=== PATIENT | male | born 1985 | race Caucasian/White ===

== ENCOUNTER 2020-02-08 16:11 | Emergency (ER) | payer MEDICAID ==
[~2020-02-08] VITALS: Ht 167.6 cm; Wt 66.7 kg
[2020-02-08 16:20] VITALS: BP 123/72
--- NOTE | 2020-02-08 16:22 | NUR ---
AT BEDSIDE FOR EVAL.
--- NOTE | 2020-02-08 16:42 | NUR ---
Patient given written and verbal discharge instructions. Patient verbalizes understanding of instructions. Patient is ambulatory with steady gait. Refuses offer of long term placement. Patient given list of available shelters in surrounding area.
== END 2020-02-08 16:43 | disposition home or self-care (01) ==
LOC: ER 16:13
DX: G40.909 Epilepsy, unspecified, not intractable, without status epilepticus (principal); Z60.2 Problems related to living alone; Z86.73 Personal history of transient ischemic attack (TIA), and cerebral infarction without residual deficits

== ENCOUNTER 2020-06-26 18:34 | Emergency (ER) | payer MEDICAID, OTHER ==
[~2020-06-26] VITALS: Ht 170.2 cm; Wt 66.7 kg
--- NOTE | 2020-06-26 18:45 | NUR ---
IV established. blood drawn and sent to lab
--- NOTE | 2020-06-26 18:48 | NUR ---
TAB 102 from [facility] with witnessed seizure. BS 142. pt states he bit his tongue. no injury noted. c/o mild headache. pt alert and able to follow commands. seizure precaution provided. PA at bedside for gerardo
[2020-06-26 18:57] LABS: BASOPHILS % (AUTO) 0.9 % (0.0-2.0); EOSINOPHILS % (AUTO) 7.4 % (0.0-6.0); HEMATOCRIT 35 % (39-51); HEMOGLOBIN 11.4 g/dL (13.5-17.5); LYMPHOCYTES % (AUTO) 24.7 % (20.0-44.0); MEAN CORPUSCULAR HGB CONC 32 g/dl (31.0-36.0); MEAN CORPUSCULAR VOLUME 79 fL (80-96); MONOCYTES # (AUTO) 0.5 /CMM (0.1-1.30); MONOCYTES % (AUTO) 11.8 % (2.0-12.0); NEUTROPHILS # (AUTO) 2.1 /CMM (1.8-8.9); NEUTROPHILS % (AUTO) 55.2 % (43.0-81.0); PLATELET COUNT (AUTO) 217 /CMM (150-450); RED BLOOD CELL COUNT(AUTO) 4.46 MIL/uL (4.5-6.0); WHITE BLOOD COUNT (AUTO) 3.9 K/uL (4.3-11.0)
[2020-06-26] MEDS ORDERED: IV NS 0.9% 1,000 ML BAG IV ONE (19:00)
[2020-06-26] MEDS ORDERED: LEVETIRACETAM (500MG) 1,000 MG in IV NS 0.9% 100 ML IV ONE (19:00)
[2020-06-26 19:15] LABS: ALANINE AMINOTRANSFERASE 18 U/L (12-78); ALBUMIN 2.9 g/dL (3.4-5.0); ALKALINE PHOSPHATASE 132 U/L (46-116); ASPARTATE AMINOTRANSFERASE 20 U/L (15-37); BILIRUBIN,TOTAL 0.1 mg/dL (0.2-1.0); CALCIUM, SERUM 8.4 mg/dL (8.5-10.1); CARBON DIOXIDE 29 mmol/L (21-32); CHLORIDE 101 mmol/L (98-107); CREATININE 0.7 mg/dL (0.6-1.3); GLUCOSE 112 mg/dL (74-106); SODIUM SERUM 136 mmol/L (136-145); TOTAL PROTEIN, SERUM 7.8 g/dL (6.4-8.2); UREA NITROGEN, BLOOD 26 mg/dL (7-18)
--- NOTE | 2020-06-26 19:36 | NUR ---
PT AAOX3, VSS, RESPIRATIONS EVEN AND UNLABORED ON RA W/ NAD NOTED. PT CONNECTED TO THE [facility] AND POX. WILL CONTINUE TO MONITOR FOR SAFETY. CALL LIGHT WITHIN REACH
--- NOTE | 2020-06-26 19:45 | NUR ---
SPOKE W/ JOURDAN FROM COUNTS INCLUDE 234 BEDS AT THE [facility], THEY WILL CALL BACK REGARDING PT'S DC INFO.
[2020-06-26] MEDS ORDERED: IBUPROFEN 600 MG TABLET ONE (19:46)
[2020-06-26 19:49] LABS: VALPROIC ACID < 3 ug/mL (50-100)
[2020-06-26] MEDS ORDERED: IBUPROFEN 600 MG TABLET PO ONE (20:00)
--- NOTE | 2020-06-26 20:00 | NUR ---
PT REFUSED TO BE PLACED IN A COMPLIANCE REPRESENTATIVE AND POX. EXPLAINED RISKS AND BENEFITS.
--- NOTE | 2020-06-26 21:29 | NUR ---
CALLED [facility] FRANKEL INTAKE, STATES WILL CALL BACK WITH UPDATE ON [facility] COLEMAN ADMIT
--- NOTE | 2020-06-26 22:40 | NUR ---
PT RESTING COMFORTABLY IN BED. NO ACUTE DISTRESS NOTED. WILL CONTINUE TO MONITOR
--- NOTE | 2020-06-26 23:12 | NUR ---
ACCEPTING MD BRICEÑO PT WILL GO TO UNIT 1 PHONE# FOR REPORT
--- NOTE | 2020-06-26 23:17 | NUR ---
[facility] ETA [phone]
--- NOTE | 2020-06-26 23:52 | NUR ---
REPORT GIVEN TO RIKKI DORAN FOR [facility]
--- NOTE | 2020-06-27 00:52 | NUR ---
REPORT GIVEN TO MIREYA HARVEY PT STABLE FOR TRANSFER
--- NOTE | 2020-06-27 00:53 | NUR ---
Patient discharged back to facility in stable condition. Written and verbal after care instructions given. Patient verbalizes understanding of instruction.
[2020-06-27 00:55] VITALS: BP 109/63
== END 2020-06-27 00:56 ==
LOC: ER 18:37
DX: G40.909 Epilepsy, unspecified, not intractable, without status epilepticus (principal); R51.9 Headache, unspecified; I25.2 Old myocardial infarction; F43.10 Post-traumatic stress disorder, unspecified; F32.9 Major depressive disorder, single episode, unspecified; Z86.73 Personal history of transient ischemic attack (TIA), and cerebral infarction without residual deficits; Z98.890 Other specified postprocedural states; Z88.6 Allergy status to analgesic agent; Z88.8 Allergy status to other drugs, medicaments and biological substances; Z60.2 Problems related to living alone
CPT/HCPCS: 36415; 70450; 80048; 80076; 80164; 80177; 84484; 85025; 93005; 96365; 99285; J1953; J7030 ×2

== ENCOUNTER 2020-06-27 12:07 | Emergency (ER) | payer OTHER ==
[~2020-06-27] VITALS: Ht 172.7 cm; Wt 66.2 kg
[2020-06-27] MEDS ORDERED: LEVETIRACETAM (250 MG) 250 MG TABLET PO ONE ×2 (12:25→12:30)
--- NOTE | 2020-06-27 12:28 | NUR ---
PATIENT A/OX4, SEEN AND EVALUATED BY DR. ARNOLD. PATIENT REFUSED TO HAVE IV INSERTION. PATIENT DENIES SI/HI AT THIS TIME. REQUESTING FOR FOOD.
[2020-06-27] MEDS ORDERED: LEVETIRACETAM (500MG) 500 MG in IV NS 0.9% 100 ML IV ONE (12:30)
[2020-06-27] MEDS ORDERED: IBUPROFEN 600 MG TABLET ONE (12:38)
--- NOTE | 2020-06-27 12:40 | NUR ---
PATIENT A/OX4, BREATHING EVEN AND UNLABORED, AMBULATORY WITH STEADY GAIT. NO DISTRESS NOTED. DR. ARNOLD AWARE. GIVEN FOOD AND TOLERATED WELL.
[2020-06-27 12:51] VITALS: BP 125/91
--- NOTE | 2020-06-27 12:54 | NUR ---
Patient given written and verbal discharge instructions. Patient verbalizes understanding of instructions. Patient is ambulatory with steady gait. Refuses offer of [facility] placement. Patient given list of available shelters in surrounding area.
[2020-06-27] MEDS ORDERED: IBUPROFEN 600 MG TABLET PO ONE (13:00)
== END 2020-06-27 12:54 | disposition home or self-care (01) ==
LOC: ER 12:14
DX: G40.909 Epilepsy, unspecified, not intractable, without status epilepticus (principal); I25.2 Old myocardial infarction; F32.9 Major depressive disorder, single episode, unspecified; F43.10 Post-traumatic stress disorder, unspecified; Z98.890 Other specified postprocedural states; Z86.73 Personal history of transient ischemic attack (TIA), and cerebral infarction without residual deficits; Z88.8 Allergy status to other drugs, medicaments and biological substances; Z88.6 Allergy status to analgesic agent; Z60.2 Problems related to living alone
CPT/HCPCS: J1953; J7030

== ENCOUNTER 2021-05-27 19:15 | Emergency (ER) | payer MEDICAID, OTHER ==
[~2021-05-27] VITALS: Ht 172.7 cm; Wt 61.2 kg
--- NOTE | 2021-05-27 19:34 | NUR ---
Patient does not wish to proceed with medical care recommended by Dr. Jensen. Patient given information related to possible complications, up to and including , which could occur as a result of leaving the hospital at this time. Patient verbalizes understanding of risks involved due to leaving against medical advice. Patient has signed AMA form.
[2021-05-27 19:35] VITALS: BP 133/80
== END 2021-05-27 20:20 | disposition home or self-care (01) ==
LOC: ER 20:19
DX: R25.1 Tremor, unspecified (principal); R56.9 Unspecified convulsions; I25.2 Old myocardial infarction; F43.10 Post-traumatic stress disorder, unspecified; Z60.2 Problems related to living alone; Z86.73 Personal history of transient ischemic attack (TIA), and cerebral infarction without residual deficits; Z95.5 Presence of coronary angioplasty implant and graft; Z86.711 Personal history of pulmonary embolism; Z85.831 Personal history of malignant neoplasm of soft tissue; Z88.4 Allergy status to anesthetic agent; Z88.8 Allergy status to other drugs, medicaments and biological substances; Z88.5 Allergy status to narcotic agent; Z88.6 Allergy status to analgesic agent; Z91.018 Allergy to other foods

== ENCOUNTER 2022-02-06 07:38 | Emergency (ER) | payer MEDICAID, OTHER ==
[~2022-02-06] VITALS: Ht 172.7 cm; Wt 61.2 kg
[2022-02-06] MEDS ORDERED: KETOROLAC TROMETHAMINE INJ 30 MG/ML VIAL ONE (08:45)
[2022-02-06] MEDS ORDERED: ACETAMINOPHEN W/ CODEINE#3 1 EA TABLET ONE (08:45)
[2022-02-06] MEDS ORDERED: ACETAMINOPHEN W/ CODEINE#3 1 EA TABLET PO ONE (09:00)
[2022-02-06] MEDS ORDERED: KETOROLAC TROMETHAMINE INJ 60 MG/2 ML VIAL IM ONE (09:00)
[2022-02-06] MEDS ORDERED: ACET1TAB23 PO (09:35)
--- NOTE | 2022-02-06 10:01 | NUR ---
Patient discharged to home in stable condition. Written and verbal after care instructions given. Patient verbalizes understanding of instruction.
[2022-02-06 10:03] VITALS: BP 133/88
== END 2022-02-06 10:03 | disposition home or self-care (01) ==
LOC: ER 07:40
DX: S09.90XA Unspecified injury of head, initial encounter (principal); I25.2 Old myocardial infarction; Z86.69 Personal history of other diseases of the nervous system and sense organs; Z88.8 Allergy status to other drugs, medicaments and biological substances; Z79.1 Long term (current) use of non-steroidal anti-inflammatories (NSAID); Y04.2XXA Assault by strike against or bumped into by another person, initial encounter; Y93.89 Activity, other specified; Y92.89 Other specified places as the place of occurrence of the external cause; Y99.8 Other external cause status
CPT/HCPCS: 70450; 70486; 96372; 99284; J1885

== ENCOUNTER 2022-04-26 06:56 | Emergency (ER) | payer MEDICAID ==
[~2022-04-26] VITALS: Ht 175.3 cm; Wt 64.0 kg
[~2022-04-26 06:56] MED LIST: ACET1TAB23 PO
--- NOTE | 2022-04-26 06:58 | NUR ---
BIBRA39 FORM SOCALVN FOR LOSS OF SENSATION TO RIGHT SIDE OF FACE/RIGHT ARM LWK 0625. +SLURRED SPEECH. PATIENT ALERT AND ORIENTED X2. BROUGHT IN BY STRETCHER IN BED 09 ON MONITOR AND POX, SEEN BY MD AT TRIAGE.
--- NOTE | 2022-04-26 06:59 | NUR ---
CODE STROKE ACTIVATED
[2022-04-26] MEDS ORDERED: IV NS 0.9% 1,000 ML BAG IV ONE (07:00)
--- NOTE | 2022-04-26 07:01 | NUR ---
PT TAKEN TO CT VIA [facility] ACLS PROTOCOL
--- NOTE | 2022-04-26 07:02 | NUR ---
TELEMED REQUEST ACTIVATED
--- NOTE | 2022-04-26 07:04 | NUR ---
[facility] SCORE 3: SLURRED SPEECH, R ARM WEAKNESS, AND FACIAL DROOP NOTED
--- NOTE | 2022-04-26 07:11 | NUR ---
[place] [address]; DR MOISES ISSA AWARE
--- NOTE | 2022-04-26 07:11 | NUR ---
BACK FROM CT
--- NOTE | 2022-04-26 07:14 | NUR ---
EMT AT PT'S BEDSIDE FOR EKG
--- NOTE | 2022-04-26 07:14 | NUR ---
Jerson frausto in [facility] - 04/26/22 at 0714 by ZOHREH BELEN SANTANA @[email or web address]
--- NOTE | 2022-04-26 07:14 | NUR ---
RAC #20G S/L BLOOD COLLECTED AND SENT TO LAB
[2022-04-26] MEDS ORDERED: RIVA10TA PO (07:22)
[2022-04-26] MEDS ORDERED: LEVE100023 PO (07:22)
--- NOTE | 2022-04-26 07:23 | NUR ---
DR DE LEON ON THE PHONE WITH DR ROSADO, RADIOLOGIST
[2022-04-26 07:26] LABS: BASOPHILS % (AUTO) 1.3 % (0.0-2.0); EOSINOPHILS % (AUTO) 4.3 % (0.0-6.0); HEMATOCRIT 37 % (39-51); HEMOGLOBIN 11.9 g/dL (13.5-17.5); LYMPHOCYTES # (AUTO) 0.9 K/uL (0.8-4.8); LYMPHOCYTES % (AUTO) 28.6 % (20.0-44.0); MEAN CORPUSCULAR HGB CONC 33 g/dl (31.0-36.0); MEAN CORPUSCULAR VOLUME 81 fL (80-96); MONOCYTES # (AUTO) 0.5 K/uL (0.1-1.30); MONOCYTES % (AUTO) 14.8 % (2.0-12.0); NEUTROPHILS # (AUTO) 1.7 K/uL (1.8-8.9); PLATELET COUNT (AUTO) 229 K/uL (150-450); RED BLOOD CELL COUNT(AUTO) 4.53 MIL/uL (4.5-6.0); WHITE BLOOD COUNT (AUTO) 3.2 K/uL (4.3-11.0)
--- NOTE | 2022-04-26 07:32 | NUR ---
COVID TEST COLLECTED AND SENT
[2022-04-26 07:40] LABS: CALCIUM, SERUM 8.3 mg/dL (8.5-10.1); CARBON DIOXIDE 29 mmol/L (21-32); CHLORIDE 104 mmol/L (98-107); CREATININE 0.8 mg/dL (0.6-1.3); GLUCOSE 86 mg/dL (74-106); POTASSIUM 4.7 mmol/L (3.5-5.1); SODIUM SERUM 138 mmol/L (136-145); UREA NITROGEN, BLOOD 15 mg/dL (7-18)
--- NOTE | 2022-04-26 08:01 | NUR ---
PT STATED THAT HE WANTED TO LEAVE AGAINST MEDICAL ADVICE, DR DE LEON AWARE. PT WAS EXPLAINED THE RISKS OF LEAVING INCLUDING STROKE, DISABILTY, AND , PT VERBALIZED HE UNDERSTOOD. AMA FORM SIGNED BY PATIENT.
[2022-04-26 08:03] VITALS: BP 132/74
--- NOTE | 2022-04-26 08:04 | NUR ---
IV removed. Catheter intact and site benign. Pressure and 4x4 applied to site. No bleeding noted.
--- NOTE | 2022-04-26 08:04 | NUR ---
Patient discharged to home in stable condition. Written and verbal after care instructions given. Patient verbalizes understanding of instruction.
--- NOTE | 2022-04-28 17:27 | NUR ---
CALL FROM LAB REGARDING (+) BLOOD CULTURE:GM (+) CO[facility]I IN [facility], PHONE NUMBERS ON -FILE CALLED,1 NUMBER IS NOT A WORKING NUMBER AND THE OTHER NUMBER,REJECTED MY CALL
== END 2022-04-26 08:13 | disposition home or self-care (01) ==
LOC: ER 06:58
DX: G40.909 Epilepsy, unspecified, not intractable, without status epilepticus (principal); R53.1 Weakness; Z20.822 Contact with and (suspected) exposure to COVID-19; Z86.73 Personal history of transient ischemic attack (TIA), and cerebral infarction without residual deficits; I25.2 Old myocardial infarction; Z86.711 Personal history of pulmonary embolism; C46.9 Kaposi's sarcoma, unspecified; C18.9 Malignant neoplasm of colon, unspecified; C79.31 Secondary malignant neoplasm of brain; F43.10 Post-traumatic stress disorder, unspecified; Z85.72 Personal history of non-Hodgkin lymphomas; Z91.041 Radiographic dye allergy status; Z91.011 Allergy to milk products; Z88.5 Allergy status to narcotic agent; Z88.8 Allergy status to other drugs, medicaments and biological substances; Z91.018 Allergy to other foods; Z79.01 Long term (current) use of anticoagulants; Z79.899 Other long term (current) drug therapy
CPT/HCPCS: 99285; 96360; 70450; 71045; 87426; 93005; 85025; 80048; 87040 ×2; 83605; 36415; 84484; 85730; 82962; J7030; C9803

== ENCOUNTER 2024-02-23 18:22 | Emergency (ER) | payer MEDICAID ==
[~2024-02-23] VITALS: Ht 170.2 cm; Wt 63.5 kg
[~2024-02-23 18:22] MED LIST changes: -ACET1TAB23 PO; +LEVE100023 PO; +RIVA10TA PO
[2024-02-23 19:59] LABS: BASOPHILS % (AUTO) 1.3 % (0.0-2.0); EOSINOPHILS # (AUTO) 0.2 K/uL (0.0-0.7); EOSINOPHILS % (AUTO) 5.4 % (0.0-6.0); HEMATOCRIT 33 % (39-51); LYMPHOCYTES # (AUTO) 1.6 K/uL (0.8-4.8); LYMPHOCYTES % (AUTO) 44.7 % (20.0-44.0); MEAN CORPUSCULAR HEMOGLOBIN 27 PG (26.0-33.0); MEAN CORPUSCULAR HGB CONC 34 g/dl (31.0-36.0); MEAN CORPUSCULAR VOLUME 80 fL (80-96); MONOCYTES # (AUTO) 0.5 K/uL (0.1-1.30); MONOCYTES % (AUTO) 12.8 % (2.0-12.0); NEUTROPHILS # (AUTO) 1.3 K/uL (1.8-8.9); NEUTROPHILS % (AUTO) 35.8 % (43.0-81.0); PLATELET COUNT (AUTO) 352 K/uL (150-450); RED BLOOD CELL COUNT(AUTO) 4.12 MIL/uL (4.5-6.0); RED CELL DISTRIBUTION WIDTH 15.7 % (11.5-15.0); WHITE BLOOD COUNT (AUTO) 3.7 K/uL (4.3-11.0)
[2024-02-23 20:23] LABS: CALCIUM, SERUM 8.6 mg/dL (8.5-10.1); CREATININE 0.9 mg/dL (0.6-1.3); POTASSIUM 4.3 mmol/L (3.5-5.1)
[2024-02-23 20:26] LABS: ALANINE AMINOTRANSFERASE 40 U/L (12-78); ALBUMIN 2.5 g/dL (3.4-5.0); ALCOHOL, BLOOD < 3 mg/dL (0-10); ALKALINE PHOSPHATASE 165 U/L (46-116); ASPARTATE AMINOTRANSFERASE 18 U/L (15-37); BILIRUBIN,DIRECT 0.1 mg/dL (0.0-0.2); BILIRUBIN,TOTAL 0.2 mg/dL (0.2-1.0)
[2024-02-23 20:32] LABS: SALICYLATE 1.9 mg/dL (2.8-20.0)
[2024-02-23 20:33] LABS: ACETAMINOPHEN 0 ug/ml (10-30)
[2024-02-23 20:41] LABS: AMPHETAMINE, URINE POSITIVE (NEGATIVE); BARBITURATE, URINE NEGATIVE (NEGATIVE); BENZODIAZEPINE, URINE NEGATIVE (NEGATIVE); CANNABINOID, URINE NEGATIVE (NEGATIVE); COCCAINE, URINE NEGATIVE (NEGATIVE); OPIATE, URINE NEGATIVE (NEGATIVE); PHENCYCLIDINE SCREEN,URINE NEGATIVE (NEGATIVE)
[2024-02-23 20:43] LABS: APPEARANCE,URINE CLEAR (CLEAR); BILIRUBIN,URINE NEGATIVE (NEGATIVE); BLOOD, URINE NEGATIVE Ery/uL (NEGATIVE); COLOR,URINE YELLOW (YELLOW); KETONES,URINE NEGATIVE (NEGATIVE); LEUKOCYTE ESTERASE ,URINE NEGATIVE (NEGATIVE); NITRITE, URINE NEGATIVE (NEGATIVE); PROTEIN,URINE NEGATIVE (NEGATIVE); UGLUCOSE NEGATIVE (NEGATIVE); UROBILINOGEN,URINE 0.2 EU/dL (0.2)
[2024-02-23] MEDS ORDERED: LEVETIRACETAM (250 MG) 250 MG TABLET PO ONE (22:55)
[2024-02-23] MEDS: LEVETIRACETAM (250 MG) 250 MG TABLET PO ONE (22:59)
[2024-02-24 01:28] VITALS: BP 122/82; TEMP 98.6; O2SAT 99
== END 2024-02-24 01:29 ==
LOC: ER 18:24
DX: G40.909 Epilepsy, unspecified, not intractable, without status epilepticus (principal); I25.2 Old myocardial infarction; Z85.038 Personal history of other malignant neoplasm of large intestine; Z86.73 Personal history of transient ischemic attack (TIA), and cerebral infarction without residual deficits; Z88.8 Allergy status to other drugs, medicaments and biological substances; Z91.040 Latex allergy status; Z91.011 Allergy to milk products; Z88.5 Allergy status to narcotic agent; Z91.018 Allergy to other foods; Z60.2 Problems related to living alone; Z20.822 Contact with and (suspected) exposure to COVID-19
CPT/HCPCS: 36415; 71045-TC; 80048-TC; 80076-TC; 82962-TC; 85025-TC; G0480

== ENCOUNTER 2024-02-24 07:18 | Emergency (ER) | payer MEDICAID ==
[~2024-02-24] VITALS: Ht 172.7 cm; Wt 70.3 kg
[2024-02-24 07:23] VITALS: BP 138/86; TEMP 98
[2024-02-24 07:37] VITALS: O2SAT 98
== END 2024-02-24 07:37 | disposition home or self-care (01) ==
LOC: ER 07:19
DX: R56.9 Unspecified convulsions (principal); Z91.040 Latex allergy status; Z88.5 Allergy status to narcotic agent; Z86.73 Personal history of transient ischemic attack (TIA), and cerebral infarction without residual deficits; Z88.8 Allergy status to other drugs, medicaments and biological substances; Z91.011 Allergy to milk products; Z91.018 Allergy to other foods; Z60.2 Problems related to living alone